=== PATIENT | female | born 1995 | race African-American/Black ===

== ENCOUNTER 2017-08-30 09:54 | Emergency (ER) | payer SELFPAY ==
[~2017-08-30] VITALS: Ht 167.6 cm; Wt 92.0 kg
[2017-08-30 10:25] VITALS: BP 111/62
[2017-08-30] MEDS ORDERED: IPRATROPIUM/ALBUTEROL 0.5-3(2.5)MG/3ML NEB HHN ONE (12:15)
[2017-08-30] MEDS ORDERED: DEXAMETHASONE 10 MG/ML VIAL IM ONE (12:15)
[2017-08-30] MEDS ORDERED: ACETAMINOPHEN 500MG TABLET PO ONE (12:30)
[2017-08-30 13:27] LABS: HCG SCREEN NEGATIVE
== END 2017-08-30 14:28 | disposition home or self-care (01) ==
LOC: ER 10:52
DX: J45.901 Unspecified asthma with (acute) exacerbation (principal); F17.210 Nicotine dependence, cigarettes, uncomplicated; R03.0 Elevated blood-pressure reading, without diagnosis of hypertension
CPT/HCPCS: 71020; 84703; 94640; 96372; 99285; J1100; J7620

== ENCOUNTER 2017-09-01 11:57 | Emergency (ER) | payer SELFPAY ==
[~2017-09-01] VITALS: Ht 167.6 cm; Wt 90.0 kg
[2017-09-01 12:09] VITALS: BP 115/65
== END 2017-09-01 13:57 | disposition home or self-care (01) ==
LOC: ER 12:49
DX: J45.909 Unspecified asthma, uncomplicated (principal); F17.200 Nicotine dependence, unspecified, uncomplicated; F12.10 Cannabis abuse, uncomplicated
CPT/HCPCS: 99281

== ENCOUNTER 2017-12-05 00:08 | Emergency (ER) | payer SELFPAY ==
[~2017-12-05] VITALS: Ht 167.6 cm; Wt 100.0 kg
[2017-12-05] MEDS ORDERED: ACETAMINOPHEN 325MG TABLET PO ONE (00:45)
[2017-12-05] MEDS ORDERED: IPRATROPIUM/ALBUTEROL 0.5-3(2.5)MG/3ML NEB HHN ONE (03:30)
[2017-12-05 04:00] VITALS: BP 118/70
== END 2017-12-05 04:25 | disposition home or self-care (01) ==
LOC: ER 00:08
DX: J45.901 Unspecified asthma with (acute) exacerbation (principal); F17.210 Nicotine dependence, cigarettes, uncomplicated
CPT/HCPCS: 71045; 76830; 76856; 81025; 94640; 99284; J7620; Z7610